=== PATIENT | female | born 1990 | race Caucasian/White ===

== ENCOUNTER 2018-06-13 09:47 | Observation (INO) | payer MEDICAID | END 2018-06-13 11:30 | disposition home or self-care (01) | LOC: L&D 09:47 | PROVIDERS: ADMIT Specialist; ATTEND Specialist | DX: O62.9 Abnormality of forces of labor, unspecified (principal); O48.0 Post-term pregnancy; Z3A.41 41 weeks gestation of pregnancy | CPT/HCPCS: 99281; G0378 ==

== ENCOUNTER 2019-05-13 10:52 | Observation (INO) | payer MEDICAID ==
[~2019-05-13] VITALS: Ht 162.6 cm; Wt 80.7 kg
[2019-05-13] MEDS: LACTATED RINGERS 1,000 ML IV SCH ×2 (11:54→13:38)
[2019-05-13 12:41] LABS: CLARITY URINE CLOUDY (CLEAR); COLOR URINE YELLOW (YELLOW); KETONES URINE 1+ (NEGATIVE); LEUKOCYTE ESTERASE URINE 2+ (NEGATIVE); NITRITE URINE NEGATIVE (NEGATIVE); OCCULT BLOOD URINE NEGATIVE (NEGATIVE); PH URINE 5.5 (4.5-8.0); PROTEIN URINE NEGATIVE (NEGATIVE); SPECIFIC GRAVITY URINE 1.021 (1.005-1.030); UROBILINOGEN URINE 0.2 E.U./dL (0.2-1.0)
[2019-05-13] MEDS ORDERED: CEFAZOLIN 1000MG PREMIX 50 ML IV NR (13:15)
== END 2019-05-13 14:30 | disposition home or self-care (01) ==
LOC: 8 EST LDRP 10:52
PROVIDERS: ADMIT Obstetrics & Gynecology; ATTEND Obstetrics & Gynecology
DX: O26.893 Other specified pregnancy related conditions, third trimester (principal); R10.9 Unspecified abdominal pain; Z3A.31 31 weeks gestation of pregnancy
CPT/HCPCS: 76805; 81003; 96365; 99281; G0378; J0690; 96360; 96361

== ENCOUNTER 2019-05-28 05:17 | Observation (INO) | payer MEDICAID ==
[~2019-05-28] VITALS: Ht 162.6 cm; Wt 81.6 kg
[2019-05-28] MEDS ORDERED: ONDANSETRON HCL 4MG/2ML INJ IV PRN (06:15)
[2019-05-28] MEDS ORDERED: LACTATED RINGERS 1,000 ML IV SCH ×2 (06:15→08:30)
[2019-05-28] MEDS ORDERED: ACETAMINOPHEN 500MG TABLET PO PRN (06:15)
[2019-05-28 06:42] LABS: CLARITY URINE CLEAR (CLEAR); COLOR URINE YELLOW (YELLOW); KETONES URINE 1+ (NEGATIVE); LEUKOCYTE ESTERASE URINE NEGATIVE (NEGATIVE); NITRITE URINE NEGATIVE (NEGATIVE); OCCULT BLOOD URINE NEGATIVE (NEGATIVE); PH URINE 8.5 (4.5-8.0); PROTEIN URINE TRACE (NEGATIVE); SPECIFIC GRAVITY URINE 1.018 (1.005-1.030); UROBILINOGEN URINE 0.2 E.U./dL (0.2-1.0)
[2019-05-28] MEDS ORDERED: FERROUS SULFATE (06:48)
[2019-05-28] MEDS ORDERED: PREN1TAB78 PO (06:48)
[2019-05-28 06:52] LABS: BASOPHILS % 0.3 % (0.0-2.0); EOSINOPHILS % 0.1 % (0.0-5.0); HEMATOCRIT. 34.8 % (36.0-48.0); MEAN CORPUSCULAR HEMOGLOBIN 29.6 pg (28.0-32.0); MEAN CORPUSCULAR VOLUME 86.1 fL (81.0-99.0); MEAN PLATELET VOLUME 9.7 fl (7.4-10.4); MONOCYTES % 4.8 % (2.0-8.0); NEUTROPHILS % 83.8 % (40.0-76.0); PLATELET 202 x1000/uL (130-400); RED BLOOD CELL COUNT 4.05 mill/uL (4.2-5.4); RED CELL DISTRIBUTION WIDTH 13.6 % (11.6-14.6)
[2019-05-28] MEDS: TERBUTALINE SULFATE 1MG/ML VIAL SUBCUT SCH ×2 (07:26→17:52)
[2019-05-28 08:26] VITALS: BP 111/66
[2019-05-28] MEDS: BUTORPHANOL TARTRATE 2 MG/ML VIAL IV PRN ×3 (08:26→17:54)
[2019-05-28] MEDS ORDERED: CEFAZOLIN 2,000 MG in DEXT 5% WATER 100 ML IV NR (08:30)
[2019-05-28 09:34] LABS: CHLORIDE 106 mEq/L (98-107)
[2019-05-28 09:39] LABS: AMYLASE 69 IU/L (25-115)
[2019-05-28] MEDS: POTASSIUM CHLORIDE INJ 40 MEQ in DEXT 5% WATER 500 ML IV SCH ×2 (10:44→15:20)
[2019-05-28] MEDS ORDERED: CEFAZOLIN 1000MG PREMIX 50 ML IV SCH (17:00)
[2019-05-28] MEDS ORDERED: ACETAMINOPHEN WITH CODEINE 300/30MG TABLET PO STA (21:31)
[2019-05-28] MEDS ORDERED: ACETAMINOPHEN WITH CODEINE 300/30MG TABLET PO NR (21:44)
== END 2019-05-28 22:00 | disposition home or self-care (01) ==
LOC: 8 EST LDRP 05:17
PROVIDERS: ADMIT Obstetrics & Gynecology; ATTEND Obstetrics & Gynecology
DX: O26.893 Other specified pregnancy related conditions, third trimester (principal); R10.2 Pelvic and perineal pain; Z3A.33 33 weeks gestation of pregnancy
CPT/HCPCS: 36415; 76705; 76805; 76818; 80053; 81003; 82150; 82731; 83690; 84132; 85025; 96365; 96366; 96372; 96375; 96376; 99281; G0378; J0595; J0690; J2405; J3105; J3480; J7060; J7120

== ENCOUNTER 2019-06-08 19:21 | Observation (INO) | payer MEDICAID ==
[~2019-06-08] VITALS: Ht 162.6 cm; Wt 81.6 kg
[~2019-06-08 19:21] MED LIST: FERROUS SULFATE; PREN1TAB78 PO
[2019-06-08] MEDS ORDERED: CEFAZOLIN 2,000 MG in DEXT 5% WATER 100 ML IV NR (20:00)
[2019-06-08] MEDS: LACTATED RINGERS 1,000 ML IV SCH ×2 (20:00→20:54)
[2019-06-08 20:25] LABS: CLARITY URINE CLOUDY (CLEAR); COLOR URINE YELLOW (YELLOW); KETONES URINE 1+ (NEGATIVE); LEUKOCYTE ESTERASE URINE 3+ (NEGATIVE); NITRITE URINE NEGATIVE (NEGATIVE); OCCULT BLOOD URINE NEGATIVE (NEGATIVE); PH URINE >=9.0 (4.5-8.0); PROTEIN URINE TRACE (NEGATIVE); SPECIFIC GRAVITY URINE 1.015 (1.005-1.030); UROBILINOGEN URINE 0.2 E.U./dL (0.2-1.0)
[2019-06-08] MEDS: TERBUTALINE SULFATE 1MG/ML VIAL SUBCUT PRN ×2 (20:25→21:13)
[2019-06-08] MEDS ORDERED: ACETAMINOPHEN 500MG TABLET PO NR (21:00)
[2019-06-08] MEDS ORDERED: BUTORPHANOL TARTRATE 2 MG/ML VIAL IV NR (22:15)
[2019-06-08 22:16] VITALS: BP 117/66
== END 2019-06-09 00:30 | disposition home or self-care (01) ==
LOC: 8 EST LDRP 19:21
PROVIDERS: ADMIT Obstetrics & Gynecology; ATTEND Obstetrics & Gynecology
DX: O26.893 Other specified pregnancy related conditions, third trimester (principal); M54.5 Low back pain; O21.9 Vomiting of pregnancy, unspecified; Z3A.34 34 weeks gestation of pregnancy
CPT/HCPCS: 81003; 87086; 96361; 96365; 96372; 96375; 99281; G0378; J0595; J0690; J3105; J7060; 96360